=== PATIENT | female | born 2000 | race Caucasian/White ===

== ENCOUNTER 2020-09-10 13:20 | Outpatient (CLI) | payer SELFPAY | END 2020-09-10 13:21 | disposition home or self-care (01) | LOC: CSHWCC 13:20 | PROVIDERS: ATTEND Nurse Practitioner Family | DX: S91.001D Unspecified open wound, right ankle, subsequent encounter (principal); G89.11 Acute pain due to trauma; L40.9 Psoriasis, unspecified; L76.32 Postprocedural hematoma of skin and subcutaneous tissue following other procedure; W22.03XS Walked into furniture, sequela | CPT/HCPCS: 99212; G0463 ==